=== PATIENT | male | born 1945 | race Two or more races ===

== ENCOUNTER 2019-01-19 07:59 | Outpatient (CLI) | payer OTHER | END 2019-01-19 08:09 | disposition home or self-care (01) | LOC: SONOGRAMA 07:59 | DX: M25.511 Pain in right shoulder (principal) ==

== ENCOUNTER 2019-09-11 06:15 | Day surgery (SDC) | payer OTHER ==
[~2019-09-11 06:15] MED LIST: FINASTERIDE5 MG PO
== END 2019-09-11 10:35 | disposition home or self-care (01) ==
LOC: CIR.AMB 06:15 → ADM 07:30 → CIR.AMB 10:35
PROVIDERS: ATTEND Orthopaedic Surgery Hand Surgery
DX: M65.342 Trigger finger, left ring finger (principal); Z20.828 Contact with and (suspected) exposure to other viral communicable diseases